=== PATIENT | female | born 1975 | race Caucasian/White ===

== ENCOUNTER 2016-08-25 06:41 | Day surgery (SDC) | payer OTHER ==
--- NOTE | 2016-08-24 11:09 | HP ---
Ivon Mckeon : 1975 HISTORY OF PRESENT ILLNESS: This is a 40-year-old female with a history of laparoscopic assisted vaginal hysterectomy and bilateral salpingo-oophorectomy in 2000 with recurring pelvic pain similar to when she had endometriosis which was prior to the hysterectomy. She has occasional vaginal pain and cramps as well. She is not using any hormone replacement therapy. She is admitted for a operative laparoscopy with lysis of adhesions for chronic pelvic pain and rule out pelvic adhesions. Risks, reasons, complications, living will, alternatives discussed, failure of surgery to relieve symptoms discussed all in laypersons terms. All questions were answered in simple terms. OB HISTORY: 2, para 2-0-0-2, two vaginal deliveries. 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 No history of sexually transmitted disease. No hormone replacement therapy. FAMILY HISTORY: Breast cancer in the both the grandmothers. SOCIAL HISTORY: Smokes marijuana and uses it topically. PAST MEDICAL HISTORY: Positive for asthma, osteoporosis. ALLERGIES: None. MEDICATIONS: Includes Tramadol and ibuprofen. PAST SURGICAL HISTORY: Fascial reconstruction secondary to snowboard accident, laparoscopic assisted vaginal hysterectomy with bilateral salpingo-oophorectomy, two other laparoscopies, an appendectomy, and a cholecystectomy. REVIEW OF SYSTEMS: Chronic pelvic pain otherwise, noncontributory. PHYSICAL EXAMINATION: GENERAL: Healthy female in no acute distress. HEENT: Normal. NECK: Supple. Thyroid not palpable. BREAST: Soft, no masses. HEART: Regular sinus rhythm, no murmurs. LUNGS: Clear. ABDOMEN: Benign. No CVA tenderness. PELVIC: Mild suprapubic tenderness. External genitalia health. Vagina healthy. Cervix was surgically absent. Uterus surgically absent. Adnexa negative. IMPRESSION: 1. Chronic pelvic pain. 2. History of endometriosis, rule out pelvic adhesions. PLAN: Operative laparoscopy with lysis of adhesions if adhesions are present. JOB: [id number]
[~2016-08-25 06:41] MED LIST: IV START KIT ONE; LACTATED RINGERS 1,000 ML ONE
[2016-08-25] MEDS ORDERED: LIDOCAINE 1% 2 ML VIAL ID PRN ×2 (06:45→10:12)
[2016-08-25] MEDS ORDERED: LACTATED RINGERS 1,000 ML IV SCH ×3 (06:45→10:15)
[2016-08-25] MEDS ORDERED: SCOPOLAMINE 1.5 MG/72 HR 1 EACH PATCH TD ONE (07:27)
[2016-08-25] MEDS ORDERED: ROCURONIUM BROMIDE 10 MG/ML DOSE IV ONE ×3 (07:41)
[2016-08-25] MEDS ORDERED: LIDOCAINE 2% (MULTI DOSE) 10 ML VIAL ONE (07:41)
[2016-08-25] MEDS ORDERED: PROPOFOL 20 ML IV ONE ×2 (07:41)
[2016-08-25] MEDS ORDERED: FENTANYL 5 ML ONE (07:42)
[2016-08-25] MEDS ORDERED: MIDAZOLAM HCL 1 MG/ML 2ML VIAL ONE (07:42)
[2016-08-25] MEDS ORDERED: DEXAMETHASONE SOD PHOS 4 MG/1 ML VIAL ONE (08:50)
[2016-08-25] MEDS ORDERED: FAMOTIDINE 10 MG/ML 2ML VIAL ONE (08:50)
[2016-08-25] MEDS ORDERED: ONDANSETRON 4 MG/2ML 2 ML VIAL ONE (08:50)
[2016-08-25] MEDS ORDERED: NEOSTIGMINE METHYLSULFATE 1 MG/ML DOSE ONE (09:11)
[2016-08-25] MEDS ORDERED: GLYCOPYRROLATE 0.2 MG/ML 1ML VIAL ONE (09:11)
[2016-08-25] MEDS ORDERED: LIDOCAINE 1%/EPI 1:100,000 (MULTI DOSE) 30 ML VIAL ONE (09:11)
[2016-08-25] MEDS ORDERED: ONDANSETRON 4 MG/2ML 2 ML VIAL IV PRN ×2 (09:13→09:35)
[2016-08-25] MEDS ORDERED: MEPERIDINE 25 MG/ML SYRINGE IV PRN (09:13)
[2016-08-25] MEDS ORDERED: NALOXONE HCL 0.4 MG/ML VIAL IV PRN (09:13)
[2016-08-25] MEDS ORDERED: ATROPINE SULFATE 0.4 MG/1 ML VIAL IV PRN (09:13)
[2016-08-25] MEDS ORDERED: PROMETHAZINE HCL 25 MG/ML VIAL IM PRN (09:13)
[2016-08-25] MEDS ORDERED: FENTANYL 100 MCG/2 ML VIAL IV PRN (09:13)
[2016-08-25] MEDS ORDERED: SODIUM CHLORIDE 0.9% 100 ML IV ONE (09:23)
--- NOTE | 2016-08-25 09:34 | PCMBPN ---
Brief Post Op Note: Date of Procedure: 08/25/16 Start Time: Preoperative Diagnosis: 1. chronic pelvic pain, history of endometriosis Postoperative Diagnosis: 1. Same Procedure: laparoscopy Surgeon: David Graff Assist: Anesthesia: ms vasquez, general Findings: external genitalia healthy, cervix, uterus, adnea absent, vagina healthy. laparoscopy: evidence of bilateral streak ovaries (remnants), old endometriosis scarring Condition: stable Complications: none IV Fluids: mLs of LR Urine Output: 50 mLs Estimated Blood Loss: less than mLs Tourniquet Time: N/A Specimens: N/A Implants: Drains: N/A closure 4-0 vicryl patient tolerated procedure well and was returned to recovery room in stable condition.
[2016-08-25] MEDS ORDERED: OXYCODONE/ACETAMINOPHEN 5/325 MG TABLET PO PRN (09:35)
[2016-08-25] MEDS ORDERED: KETOROLAC TROMETHAMINE 30 MG/ML 1 ML VIAL IV PRN (09:35)
[2016-08-25] MEDS ORDERED: IBUPROFEN 800 MG TABLET PO PRN (09:35)
[2016-08-25] MEDS: HYDROMORPHONE HCL 1 MG/ML SYRINGE IV PRN ×3 (10:02→10:19)
--- NOTE | 2016-08-25 10:12 | OP ---
Valentino Mckeon : 1975 DATE OF SURGERY: 08/25/2016 NAME OF OPERATION: Laparoscopy. PREOPERATIVE DIAGNOSES: 1. Chronic pelvic pain. 2. History of endometriosis. POSTOPERATIVE DIAGNOSES: 1. Chronic pelvic pain. 2. History of endometriosis. [employer] MANAGER: Dr. David Aranda ANESTHESIA: General Lio. DESCRIPTION OF PROCEDURE: Begins with patient under general anesthesia. She was placed in the lithotomy position. The vagina was prepared with Betadine and the abdomen was prepared with Chloraprep and draped in the usual manner. After a timeout was preformed a speculum exam showed that the vaginal vault was intact and healthy. The speculum was then removed and pelvic exam showed the absence of uterus and adnexa from previous hysterectomy. A sponge on a stick was placed into the vagina for mobilization. The bladder had been emptied of 50 mL of clear yellow urine. Next, two towel clamps were used to grasp the skin lateral to the umbilicus and a subumbilical incision was made with a knife. The Veress needle was inserted, tested with normal saline, and found to be patent. Carbon dioxide gas was instilled with an opening pressure of 8 mmHg until 1.9 liters of carbon dioxide gas were instilled creating an adequate pneumoperitoneum by percussion. The Veress needle was then removed. The incision extended laterally and a laparoscopic trocar was inserted uneventfully. The laparoscope was then hooked up. Findings included bilateral streak ovaries or reminants of the ovaries from previous total abdominal hysterectomy and bilateral salpingo-oophorectomy. There was del rosario powder burn scars noted in the anterior cul-de-sac which is suggestive evidence of old endometriosis, one minimal adhesion present, and otherwise the examination was negative. Photographs of this were taken and at this point with complete hemostasis the laparoscopy was terminated. With complete hemostasis the laparoscope was removed, it was expelled through the trocar sheath and then the trocar was removed. The skin defects were closed with 4-0 Vicryl interrupted sutures and then the incision was injected with a total of 8 mL of 1% lidocaine with epinephrine. The vaginal instruments were removed and at this point the operation was terminated. Estimated blood loss was less than 5 mL and patient tolerated procedure well and was returned to recovery room in stable condition. FINAL DIAGNOSIS: History of chronic pelvic and history of endometriosis with evidence of reminant of both ovaries and evidence of old endometriotic lesions. JOB: [id number]
--- NOTE | 2016-08-25 10:16 | DS ---
[facility] COURSE: This is a 41-year-old female who was admitted with chronic pelvic pain and a history of endometriosis with history of a laparoscopic assisted vaginal hysterectomy and bilateral salpingo-oophorectomy. She underwent a laparoscopy for the said diagnosis and then tolerated the procedure well and was sent home in good condition with analgesics. Activities were explained to patient prior to her going to have surgery and she was advised office visit in one weeks time. Laboratory values were normal. FINAL DIAGNOSIS: As above. JOB: [id number]
[2016-08-25] MEDS ORDERED: OXYCODONE/ACETAMINOPHEN 5/325 MG TABLET ONE (11:00)
== END 2016-08-25 12:07 | disposition home or self-care (01) ==
LOC: SDC 06:41
PROVIDERS: ATTEND Obstetrics & Gynecology
PROC: 0WJJ4ZZ Inspection of Pelvic Cavity, Percutaneous Endoscopic Approach (ICD-10-PCS; principal; 2016-08-25)
DX: R10.2 Pelvic and perineal pain (principal); G89.29 Other chronic pain; Z87.42 Personal history of other diseases of the female genital tract; F12.90 Cannabis use, unspecified, uncomplicated; Z90.710 Acquired absence of both cervix and uterus; Z90.722 Acquired absence of ovaries, bilateral; J45.909 Unspecified asthma, uncomplicated; M81.0 Age-related osteoporosis without current pathological fracture; Z80.3 Family history of malignant neoplasm of breast
CPT/HCPCS: 49320; J1170 ×2; J3010; J1100; A9270 ×2; J1885; J2250; J2001 ×2; J2405; J7120; J7050

== ENCOUNTER 2016-09-04 16:44 | Emergency (ER) | payer OTHER ==
[2016-09-04] MEDS ORDERED: IOPAMIDOL 300 (61%) 150 ML VIAL IV ONE (16:45)
[2016-09-04] MEDS ORDERED: LACTATED RINGERS 1,000 ML ONE (17:39)
[2016-09-04] MEDS ORDERED: ONDANSETRON 4 MG/2ML 2 ML VIAL ONE (17:39)
[2016-09-04] MEDS ORDERED: HYDROMORPHONE HCL 0.5 MG/0.5 ML SYRINGE ONE (17:41)
[2016-09-04 18:24] LABS: ABSOLUTE NEUTROPHIL COUNT 7.1 K/mm3 (1.8-7.7); BASO # 0.1 K/mm3 (0.0-0.2); BASO % 0.7 % (0.2-1.0); EOS # 0.3 (0.0-0.5); EOS % 3.1 % (0.9-2.9); HEMATOCRIT 42.1 % (37.0-47.0); HEMOGLOBIN 14.4 gm/l (12.0-16.0); IMM NEUT% 0.3 % (0-1); LYMPH # 2.4 (1.0-4.8); LYMPH % 21.9 % (15-45); MEAN CELL VOLUME 87.5 fl (81.0-99.0); MEAN CORPUSCULAR HEMOGLOBIN 29.9 pg (27.0-31.0); MEAN CORPUSCULAR HGB CONC 34.2 g/dl (33.0-37.0); MEAN PLATELET VOLUME 9.6 fl (7.4-10.4); MONO # 0.9 (0.0-0.8); MONO % 7.9 % (4-12); NEUT % 66.1 % (43-75); PLATELET COUNT 364 K/mm3 (130-400); RED CELL DISTRIBUTION WIDTH 13.1 % (11.5-14.5)
[2016-09-04] MEDS ORDERED: PROMETHAZINE HCL 25 MG/ML VIAL ONE (18:40)
[2016-09-04 18:58] LABS: ALB/GLOB RATIO 1.3 (>1.0); ALBUMIN 4.4 gm/dL (3.5-5.7); CALCIUM 9.9 mg/dL (8.6-10.3)
[2016-09-04 19:47] LABS: SPECIFIC GRAVITY 1.015 (1.001-1.030); URINE APPEARANCE CLEAR; URINE BILIRUBIN NEGATIVE (NEGATIVE); URINE BLOOD NEGATIVE (NEGATIVE); URINE COLOR YELLOW; URINE GLUCOSE (UA) NEGATIVE (NEGATIVE); URINE LEUKOCYTE ESTERASE NEGATIVE (NEGATIVE); URINE NITRITE NEGATIVE (NEGATIVE); URINE PROTEIN NEGATIVE (NEGATIVE); URINE UROBILINOGEN NORMAL (0-1 mg/dl)
--- NOTE | 2016-09-04 20:06 | CT ---
CT ABDOMEN AND PELVIS WITH CONTRAST HISTORY: Status post laparoscopic surgery, open wound at site of stable removal. TECHNIQUE: Following intravenous administration of 125 mL of Isovue-300, contiguous axial images were acquired from the lung bases to the ischial tuberosities. Oral contrast was not administered. COMPARISON:None. FINDINGS: LUNG BASES: No gross airspace consolidation or pleural effusion. LIVER: No focal lesion. SPLEEN: No focal lesion. PANCREAS: No focal lesion. ADRENAL GLANDS: No mass effect. KIDNEYS: No focal lesion. No collecting system dilatation. GALLBLADDER: Surgically absent. Mild prominence of the common bile duct the setting of postcholecystectomy change, 11 mm in width. BOWEL: Minor prominence of a few left upper quadrant bowel loops, relative transition at the central abdomen. There is minor wall thickening of the proximal colon. APPENDIX: Evidence of prior appendectomy. PELVIC ORGANS: Status post hysterectomy, no adnexal mass effect. FREE FLUID: No gross free fluid identified. ANTERIOR ABDOMINAL WALL: Periumbilical skin thickening with minor soft tissue defect measuring approximately 1.3 x 0.3 cm, no associated abscess. Minor fatty umbilical hernia. ABDOMINOPELVIC LYMPH NODES: No abnormally enlarged lymph nodes identified. ABDOMINAL AORTA: Normal caliber. OSSEOUS STRUCTURES: No grossly destructive lesions. IMPRESSION: 1. Minor soft tissue defect at inferior periumbilical soft tissues without associated abscess. 2. Minor prominence of small bowel loops at the left upper quadrant which may simply reflect a focal ileus versus developing obstruction, consider radiographic follow-up. 3. Nonspecific mild wall thickening of the proximal colon, associated mild colitic change is possible. 4. Post hysterectomy, post appendectomy, and postcholecystectomy change. Results were electronically transmitted to the electronic medical record at 09/04/2016 at 2001 hours.
== END 2016-09-04 20:36 | disposition home or self-care (01) ==
LOC: ED 16:44
DX: R10.13 Epigastric pain (principal)
CPT/HCPCS: 83690; 85025; 80053; 81003; 74177; 96375 ×2; 99284 ×2; 96374; 96361; J2550; J2405; J7120; Q9967; J1170